=== PATIENT | female | born 1940 | race African-American/Black ===

== ENCOUNTER 2017-04-25 08:40 | Day surgery (SDC) | payer MEDICARE, MEDICAID ==
[~2017-04-25] VITALS: Ht 165.1 cm; Wt 74.8 kg
[~2017-04-25 08:40] MED LIST: AMLO10TA80 PO; CARV25TA47 PO; CHOL100044 PO; LACTATED RINGERS 1,000 ML IV SCH; NAPR220T66 PO; VALS160T2 PO; VITA1CAP47 PO; [UNRECOGNIZED DRUG - OTHER] PO
[2017-04-25] MEDS ORDERED: BALANCED SALT IRRIG SOLN COMB1 500ML OP ONE (09:00)
[2017-04-25] MEDS ORDERED: PHENYLEPHRINE HCL 10% OPHTH DROPS 5ML RIGHTEYE ONE (11:00)
[2017-04-25] MEDS ORDERED: TROPICAMIDE 1% OPHTH DROPS 15ML RIGHTEYE ONE (11:00)
[2017-04-25] MEDS ORDERED: CYCLOPENTOLATE HCL 1% OPHTH DROPS 2ML RIGHTEYE ONE (11:00)
[2017-04-25] MEDS ORDERED: HYALURONATE SODIUM 14 MG/ML 0.85ML SYRINGE IO ONE (13:13)
[2017-04-25] MEDS ORDERED: FENTANYL CITRATE/PF 50MCG/ML 2ML VIAL ONE (13:26)
[2017-04-25] MEDS ORDERED: MIDAZOLAM HCL 2 MG/2 ML VIAL ONE (13:26)
[2017-04-25] MEDS ORDERED: ONDANSETRON HCL 4MG/2ML VIAL IV PRN (13:30)
[2017-04-25] MEDS ORDERED: BALANCED SALT IRRIG SOLN 15ML ONE (14:29)
[2017-04-25] MEDS ORDERED: BUPIVACAINE HCL/PF 0.75% (7.5MG/ML) 10ML ONE (14:29)
[2017-04-25] MEDS ORDERED: NEO/POLYMYX B SULF/DEXAMETH OPHTH OINT 3.5GM ONE (14:29)
[2017-04-25] MEDS ORDERED: LIDOCAINE HCL/PF 2% 20 MG/ML 10ML VIAL ONE (14:29)
[2017-04-25] MEDS ORDERED: PREDNISOLONE ACETATE 1% OPHTH DROPS 1ML ONE (14:29)
[2017-04-25] MEDS ORDERED: CIPROFLOXACIN 0.3% OPHTH SOLN 2.5ML ONE (14:29)
[2017-04-25] MEDS ORDERED: LIDOCAINE HCL 2%/EPINEPHRINE 1:100,000 20 ML VIAL INFIL ONE (14:29)
== END 2017-04-25 15:45 | disposition home or self-care (01) ==
LOC: OR 08:40
PROVIDERS: ATTEND Ophthalmology
DX: H25.89 Other age-related cataract (principal); K21.9 Gastro-esophageal reflux disease without esophagitis; F17.200 Nicotine dependence, unspecified, uncomplicated; Z98.890 Other specified postprocedural states
CPT/HCPCS: 66984; J2250; J3010; J3490; J7120; V2632

== ENCOUNTER 2021-04-22 19:20 | Emergency (ER) | payer MEDICARE, MEDICAID ==
[~2021-04-22] VITALS: Ht 167.6 cm; Wt 69.0 kg
[~2021-04-22 19:20] MED LIST changes: -AMLO10TA80 PO; -CARV25TA47 PO; +FURO20TA4 PO; +HYDR12.54 PO; +IBUP-22 PO; -LACTATED RINGERS 1,000 ML IV SCH; +MAGN400C PO; +MONT10TA32 PO; -NAPR220T66 PO; +NEBI20TA2 PO; -VALS160T2 PO; -[UNRECOGNIZED DRUG - OTHER] PO
[2021-04-22 20:43] LABS: BASOPHILS % 0.5 % (0.0-2.0); EOSINOPHILS % 3.4 % (0.0-5.0); HEMATOCRIT. 39.8 % (36.0-48.0); HEMOGLOBIN. 12.8 g/dL (12.0-16.0); LYMPHOCYTES % 29.5 % (20.0-50.0); MEAN CORPUSCULAR HEMOGLOBIN 28.3 pg (28.0-32.0); MEAN CORPUSCULAR VOLUME 88.3 fL (81.0-99.0); MEAN PLATELET VOLUME 7.2 fl (7.4-10.4); MONOCYTES % 10.4 % (2.0-8.0); NEUTROPHILS % 56.2 % (40.0-76.0); PLATELET 240 x1000/uL (130-400); RED BLOOD CELL COUNT 4.51 mill/uL (4.2-5.4); RED CELL DISTRIBUTION WIDTH 14.7 % (11.6-14.6)
[2021-04-22 20:47] LABS: CHLORIDE 112 mEq/L (98-107)
[2021-04-22 20:50] LABS: PROTHROMBIN TIME 10.5 sec (9.6-11.0)
[2021-04-22] MEDS ORDERED: IOHEXOL-350 100 ML BOTTLE ONE (22:06)
[2021-04-22] MEDS ORDERED: MAGNESIUM/ALUMINUM HYDROXIDE/SIMETHICONE 30ML UDC PO PRN (22:30)
[2021-04-22] MEDS ORDERED: IPRATROPIUM/ALBUTEROL 0.5-3(2.5)MG/3ML NEB HHN PRN (22:30)
[2021-04-22] MEDS ORDERED: HYDROCODONE/ACETAMINOPHEN 5/325MG TABLET PO PRN (22:30)
[2021-04-22] MEDS ORDERED: DOCUSATE SODIUM 100MG CAPSULE PO PRN (22:30)
[2021-04-22] MEDS ORDERED: HYDRALAZINE 20MG/ML VIAL IV PRN (22:30)
[2021-04-22] MEDS ORDERED: ONDANSETRON HCL 4MG/2ML INJ IV PRN (22:30)
[2021-04-22] MEDS ORDERED: GUAIFENESIN 200MG/10ML SUGAR FREE UDC PO PRN (22:30)
[2021-04-22] MEDS ORDERED: DIPHENHYDRAMINE 50MG/ML VIAL IV PRN (22:30)
[2021-04-22] MEDS ORDERED: MORPHINE SULFATE 2 MG/ML CPJ (NOT FOR IM USE) IV PRN (22:30)
[2021-04-22] MEDS ORDERED: CLONIDINE 0.1MG TABLET PO PRN (22:30)
[2021-04-22] MEDS ORDERED: ACETAMINOPHEN 325MG TABLET PO PRN (22:30)
[2021-04-22] MEDS ORDERED: LORAZEPAM 2MG/ML CPJ IV PRN (22:30)
[2021-04-22] MEDS: ASPIRIN 81MG TABLET PO ONE (23:27)
[2021-04-22] MEDS ORDERED: NALOXONE HCL 0.4 MG/ML 1ML VIAL IV PRN (23:45)
[2021-04-23] VITALS: BP 154/65
[2021-04-23] MEDS ORDERED: SODIUM CHLORIDE 0.9% INJ 3ML FLUSH IVF SCH (06:00)
[2021-04-23] MEDS ORDERED: ENOXAPARIN 40MG/0.4ML SYR SUBCUT SCH (09:00)
== END 2021-04-23 01:17 | disposition short-term general hospital (02) ==
LOC: ER 19:20
DX: I63.9 Cerebral infarction, unspecified (principal); I10 Essential (primary) hypertension; Z90.49 Acquired absence of other specified parts of digestive tract
CPT/HCPCS: 36415; 70496; 70498; 80048; 84484; 85025; 85610; 93005; 93970; 99291; Q9967